=== PATIENT | male | born 1995 | race Caucasian/White ===

== ENCOUNTER 2024-08-23 00:41 | Emergency (ER) | payer SELFPAY ==
[~2024-08-23] VITALS: Ht 167.6 cm; Wt 77.1 kg
[2024-08-23 01:23] VITALS: BP 127/78; TEMP 99.1; O2SAT 98
== END 2024-08-23 02:07 | disposition left against medical advice (07) ==
LOC: ER 00:44
DX: L02.519 Cutaneous abscess of unspecified hand (principal); Z53.21 Procedure and treatment not carried out due to patient leaving prior to being seen by health care provider